=== PATIENT | female | born 1960 | race African-American/Black ===

== ENCOUNTER 2017-07-13 13:32 | Inpatient (IN) | payer MEDICAID ==
[~2017-07-13] VITALS: Ht 170.2 cm; Wt 71.0 kg
[~2017-07-13 13:32] MED LIST: ALBU1.25 NEB; ALBU6.7H INH; AMOX1TAB61 PO; AMOX1TAB64 PO; AZIT500T5 PO; CLIN300C8 PO; ERTA1VIA IV; FLUT1DIS5 IH; GABA300C10 PO; GUAI600T31 PO; HYDR-3237 PO; METF850T2 PO; METH500T7 PO; PRED20TA PO; PRED5TAB PO; PRED5TAB19 PO; SULF1TAB24 PO; TIOT18CA INH; ZOLP-413 PO
[2017-07-13] MEDS ORDERED: KETOROLAC 30 MG/1 ML IVPush ONE (14:00)
[2017-07-13] MEDS ORDERED: ALBUTEROL/IPRATROPIUM 2.5MG/0.5MG, 3 ML NPPB ONE (14:00)
[2017-07-13] MEDS ORDERED: methylPREDNISolone SOD SUCC 125 MG/2 ML IVP ONE ×2 (14:00→16:30)
[2017-07-13] MEDS ORDERED: CEFTRIAXONE PMX 1GM/50ML 50 ML IVPB ONE ×2 (14:00→16:00)
[2017-07-13] MEDS ORDERED: SODIUM CHLORIDE 0.9% 1,000ML IVBOLUS ONE (14:00)
[2017-07-13] MEDS ORDERED: SODIUM CHLORIDE FLUSH 10ML SYR IVF ONE (14:00)
[2017-07-13] MEDS ORDERED: KETOROLAC 30 MG/1 ML ONE (14:06)
[2017-07-13] MEDS ORDERED: CEFTRIAXONE PMX 1GM/50ML 50 ML ONE (14:06)
[2017-07-13] MEDS ORDERED: methylPREDNISolone SOD SUCC 125 MG/2 ML ONE (14:06)
[2017-07-13] MEDS ORDERED: ALBUTEROL/IPRATROPIUM 2.5MG/0.5MG, 3 ML ONE (14:09)
[2017-07-13 14:24] LABS: BASOPHILS % (AUTO) 0 % (0-1); EOSINOPHILS % (AUTO) 0 % (1-7); LYMPHOCYTES # (AUTO) 1.08 x10^3/uL (1-3.4); LYMPHOCYTES % (AUTO) 7 % (22-44); MD NO; MEAN CORPUSCULAR HEMOGLOBIN 31.1 pg (27.0-34.8); MEAN CORPUSCULAR HGB CONC 33.6 g/dL (32.4-35.8); MEAN CORPUSCULAR VOLUME 92.6 fL (80-100); MEAN PLATELET VOLUME 7.7 fL (7.4-10.4); MONOCYTES # (AUTO) 0.16 x10^3/uL (0.2-0.8); MONOCYTES % (AUTO) 1 % (2-9); NEUTROPHILS # (AUTO) 13.99 x10^3/uL (1.8-6.8); NEUTROPHILS % (AUTO) 92 % (42-75); PLATELET COUNT 413 x10^3/uL (130-400); RED BLOOD COUNT 4.62 x10^6/uL (3.82-5.3); RED CELL DISTRIBUTION WIDTH 13.1 % (9.6-15.2)
[2017-07-13 14:37] LABS: ALBUMIN 3.1 g/dL (3.4-5.0); ANION GAP 8 mmol/L (5-15); CALCIUM 8.6 mg/dL (8.5-10.1); CHLORIDE 104 mmol/L (98-107); CREATININE 0.75 mg/dL (0.55-1.02)
[2017-07-13 14:41] LABS: TROPONIN I < 0.015 ng/mL (0.000-0.045)
[2017-07-13] MEDS ORDERED: ONDANSETRON 2MG/ML, 2ML ONE (14:58)
[2017-07-13] MEDS ORDERED: PRED10TA14 PO (15:17)
[2017-07-13] MEDS ORDERED: SODIUM CHLORIDE 0.9% 1,000 ML IV ONE ×2 (15:49→16:30)
[2017-07-13] MEDS ORDERED: SODIUM CHLORIDE FLUSH 10ML SYR IVF PRN (16:00)
[2017-07-13] MEDS ORDERED: ONDANSETRON 2MG/ML, 2ML IVPush PRN (16:30)
[2017-07-13] MEDS ORDERED: ACETAMINOPHEN 325 MG TABLET PO PRN (16:30)
[2017-07-13] MEDS ORDERED: LABETALOL 5MG/ML, 20ML IVPush PRN (16:30)
[2017-07-13] MEDS ORDERED: ENALAPRILAT 1.25 MG/ML, 2ML IVPush PRN (16:30)
[2017-07-13] MEDS ORDERED: ONDANSETRON ODT 4 MG PO PRN (16:30)
[2017-07-13] MEDS ORDERED: DOCUSATE 100 MG CAPSULE PO PRN (16:30)
[2017-07-13 17:30] VITALS: BP 142/91
[2017-07-13] MEDS ORDERED: methylPREDNISolone SOD SUCC 40 MG/ML ONE (18:18)
[2017-07-13] MEDS: methylPREDNISolone SOD SUCC 40 MG/ML IVPush SCH ×2 (18:23→22:19)
[2017-07-13] MEDS: AZITHROMYCIN 500 MG in SODIUM CHLORIDE 0.9% 250 ML IV SCH (18:34)
[2017-07-13] MEDS ORDERED: ACETAMINOPHEN 325 MG TABLET ONE (18:40)
[2017-07-13] MEDS: ALBUTEROL/IPRATROPIUM 2.5MG/0.5MG, 3 ML NPPB SCH (20:00)
[2017-07-13] MEDS: FLUTICASONE/VILANTEROL 200-25MCG/INH INH SCH (21:00)
[2017-07-13] MEDS: OSELTAMIVIR 75 MG CAPSULE PO SCH (22:00)
[2017-07-13] MEDS: GUAIFENESIN/DM 200-20MG, 10ML UDC PO PRN (22:00)
[2017-07-13] MEDS: GABAPENTIN 300 MG CAPSULE PO SCH (22:00)
[2017-07-13] MEDS: ENOXAPARIN 40 MG/0.4 ML SQ SCH (22:00)
[2017-07-13] MEDS: INSULIN ASPART 100 UNITS/ML, PEN SQ-INSULIN SCH (22:01)
[2017-07-14 01:08] VITALS: BP 141/82
[2017-07-14] MEDS: ALBUTEROL/IPRATROPIUM 2.5MG/0.5MG, 3 ML NPPB SCH ×5 (03:35→19:01)
[2017-07-14] MEDS: methylPREDNISolone SOD SUCC 40 MG/ML IVPush SCH ×4 (04:30→22:49)
[2017-07-14 05:11] LABS: BASOPHILS # (AUTO) 0.03 x10^3/uL (0-0.1); BASOPHILS % (AUTO) 0 % (0-1); EOSINOPHILS % (AUTO) 0 % (1-7); LYMPHOCYTES # (AUTO) 1.29 x10^3/uL (1-3.4); LYMPHOCYTES % (AUTO) 8 % (22-44); MD NO; MEAN CORPUSCULAR HEMOGLOBIN 30.9 pg (27.0-34.8); MEAN CORPUSCULAR HGB CONC 32.9 g/dL (32.4-35.8); MEAN CORPUSCULAR VOLUME 93.8 fL (80-100); MEAN PLATELET VOLUME 7.5 fL (7.4-10.4); MONOCYTES # (AUTO) 0.23 x10^3/uL (0.2-0.8); MONOCYTES % (AUTO) 1 % (2-9); NEUTROPHILS # (AUTO) 14.56 x10^3/uL (1.8-6.8); NEUTROPHILS % (AUTO) 90 % (42-75); PLATELET COUNT 413 x10^3/uL (130-400); RED BLOOD COUNT 4.43 x10^6/uL (3.82-5.3); RED CELL DISTRIBUTION WIDTH 13.2 % (9.6-15.2)
[2017-07-14 05:17] LABS: ANION GAP 9 mmol/L (5-15); CALCIUM 8.4 mg/dL (8.5-10.1); CHLORIDE 101 mmol/L (98-107)
[2017-07-14 05:18] LABS: CREATININE 0.53 mg/dL (0.55-1.02)
[2017-07-14] MEDS: GUAIFENESIN/DM 200-20MG, 10ML UDC PO PRN ×2 (05:37→11:45)
[2017-07-14 06:55] VITALS: BP 138/89
[2017-07-14] MEDS: GABAPENTIN 300 MG CAPSULE PO SCH ×2 (08:55→20:20)
[2017-07-14] MEDS: SENNA/DOCUSATE TABLET PO SCH (08:55)
[2017-07-14] MEDS: OSELTAMIVIR 75 MG CAPSULE PO SCH ×2 (08:55→20:20)
[2017-07-14] MEDS: FLUTICASONE/VILANTEROL 200-25MCG/INH INH SCH (08:55)
[2017-07-14] MEDS: DIPHENHYDRAMINE 25 MG CAPSULE PO PRN (08:55)
[2017-07-14] MEDS: INSULIN ASPART 100 UNITS/ML, PEN SQ-INSULIN SCH ×4 (08:56→20:21)
[2017-07-14] MEDS ORDERED: CEFTRIAXONE PMX 1GM/50ML 50 ML IV SCH (09:00)
[2017-07-14] MEDS ORDERED: IPRATROPIUM 0.5 MG/2.5 ML INHA NPPB SCH (09:00)
[2017-07-14] MEDS ORDERED: CEFTRIAXONE 1,000 MG in DEXTROSE 5% 50 ML IV SCH (09:00)
[2017-07-14] MEDS: ACETAMINOPHEN 325 MG TABLET PO SCH ×2 (11:45→18:01)
[2017-07-14 13:59] VITALS: BP 137/82
[2017-07-14] MEDS: AZITHROMYCIN 500 MG in SODIUM CHLORIDE 0.9% 250 ML IV SCH (16:29)
[2017-07-14] MEDS: ENOXAPARIN 40 MG/0.4 ML SQ SCH (16:29)
[2017-07-14 18:45] VITALS: BP 142/84
[2017-07-14] MEDS: ZOLPIDEM 5MG TABLET PO SCH (20:20)
[2017-07-15] MEDS: GUAIFENESIN/DM 200-20MG, 10ML UDC PO PRN ×3 (00:12→20:33)
[2017-07-15] MEDS: ACETAMINOPHEN 325 MG TABLET PO SCH ×4 (00:13→17:17)
[2017-07-15 02:01] VITALS: BP 137/87
[2017-07-15] MEDS: methylPREDNISolone SOD SUCC 40 MG/ML IVPush SCH (04:43)
[2017-07-15 05:30] LABS: MEAN CORPUSCULAR HEMOGLOBIN 30.9 pg (27.0-34.8); MEAN CORPUSCULAR HGB CONC 33.3 g/dL (32.4-35.8); MEAN CORPUSCULAR VOLUME 92.9 fL (80-100); MEAN PLATELET VOLUME 7.4 fL (7.4-10.4); PLATELET COUNT 404 x10^3/uL (130-400); RED BLOOD COUNT 4.26 x10^6/uL (3.82-5.3)
[2017-07-15 05:31] LABS: ANION GAP 7 mmol/L (5-15); CALCIUM 8.9 mg/dL (8.5-10.1); CHLORIDE 102 mmol/L (98-107); CREATININE 0.64 mg/dL (0.55-1.02)
[2017-07-15 06:06] LABS: BASOPHILS % (AUTO) 0 % (0-1); EOSINOPHILS % (AUTO) 0 % (1-7); LYMPHOCYTES # (AUTO) 1.43 x10^3/uL (1-3.4); LYMPHOCYTES % (AUTO) 6 % (22-44); MD SCAN; MONOCYTES # (AUTO) 0.72 x10^3/uL (0.2-0.8); MONOCYTES % (AUTO) 3 % (2-9); NEUTROPHILS # (AUTO) 21.76 x10^3/uL (1.8-6.8); NEUTROPHILS % (AUTO) 91 % (42-75)
[2017-07-15 06:40] VITALS: BP 133/90
[2017-07-15] MEDS: ALBUTEROL/IPRATROPIUM 2.5MG/0.5MG, 3 ML NPPB SCH ×4 (07:00→18:46)
[2017-07-15] MEDS: SENNA/DOCUSATE TABLET PO SCH (08:31)
[2017-07-15] MEDS: DIPHENHYDRAMINE 25 MG CAPSULE PO PRN (08:31)
[2017-07-15] MEDS: GABAPENTIN 300 MG CAPSULE PO SCH ×2 (08:31→20:27)
[2017-07-15] MEDS: methylPREDNISolone SOD SUCC 40 MG/ML IV SCH ×2 (08:32→20:27)
[2017-07-15] MEDS: OSELTAMIVIR 75 MG CAPSULE PO SCH ×2 (08:32→20:27)
[2017-07-15] MEDS: FLUTICASONE/VILANTEROL 200-25MCG/INH INH SCH (08:32)
[2017-07-15] MEDS: INSULIN ASPART 100 UNITS/ML, PEN SQ-INSULIN SCH ×4 (08:32→22:01)
[2017-07-15] MEDS ORDERED: PHARMACOKINETIC MONITORING MC PRN (09:00)
[2017-07-15] MEDS ORDERED: VANCOMYCIN PER PHARMACY MC PRN (09:00)
[2017-07-15] MEDS ORDERED: PHARMACOKINETIC CONSULTATION MC ONE (09:00)
[2017-07-15 09:15] LABS: ALANINE AMINOTRANSFERASE 25 U/L (12-78); ALBUMIN 2.8 g/dL (3.4-5.0)
[2017-07-15 09:17] LABS: ALKALINE PHOSPHATASE 93 U/L (45-117); TOTAL PROTEIN 6.6 g/dL (6.4-8.2)
[2017-07-15 09:18] LABS: BILIRUBIN,TOTAL < 0.1 mg/dL (0.2-1.0)
[2017-07-15] MEDS: VANCOMYCIN 1,400 MG in SODIUM CHLORIDE 0.9% 250 ML IV SCH ×2 (11:38→22:01)
[2017-07-15] MEDS: LACTOBACILLUS CHEW TABLET PO SCH ×3 (12:01→20:27)
[2017-07-15 13:33] VITALS: BP 142/88
[2017-07-15] MEDS: AZITHROMYCIN 500 MG in SODIUM CHLORIDE 0.9% 250 ML IV SCH (17:17)
[2017-07-15] MEDS: ENOXAPARIN 40 MG/0.4 ML SQ SCH (17:17)
[2017-07-15 19:44] VITALS: BP 126/78
[2017-07-15] MEDS: ZOLPIDEM 5MG TABLET PO SCH (20:27)
[2017-07-16] MEDS: ALBUTEROL SULFATE 2.5 MG/3 ML NPPB PRN ×2 (00:19→12:30)
[2017-07-16] MEDS: DIPHENHYDRAMINE 25 MG CAPSULE PO PRN ×2 (00:42→20:32)
[2017-07-16] MEDS: ACETAMINOPHEN 325 MG TABLET PO SCH ×4 (00:42→18:13)
[2017-07-16 02:30] VITALS: BP 148/87
[2017-07-16] MEDS: GUAIFENESIN/DM 200-20MG, 10ML UDC PO PRN ×3 (03:05→18:16)
[2017-07-16 07:01] VITALS: BP 137/88
[2017-07-16 07:50] LABS: MEAN CORPUSCULAR HEMOGLOBIN 31.3 pg (27.0-34.8); MEAN CORPUSCULAR HGB CONC 33.8 g/dL (32.4-35.8); MEAN CORPUSCULAR VOLUME 92.8 fL (80-100); MEAN PLATELET VOLUME 7.3 fL (7.4-10.4); PLATELET COUNT 436 x10^3/uL (130-400); RED BLOOD COUNT 4.51 x10^6/uL (3.82-5.3); RED CELL DISTRIBUTION WIDTH 13.2 % (9.6-15.2)
[2017-07-16] MEDS: ALBUTEROL/IPRATROPIUM 2.5MG/0.5MG, 3 ML NPPB SCH ×4 (07:50→18:49)
[2017-07-16 08:01] LABS: ALBUMIN 3.1 g/dL (3.4-5.0); ANION GAP 9 mmol/L (5-15); CALCIUM 8.7 mg/dL (8.5-10.1); CHLORIDE 100 mmol/L (98-107); CREATININE 0.72 mg/dL (0.55-1.02)
[2017-07-16 08:17] LABS: BASOPHILS # (AUTO) 0.01 x10^3/uL (0-0.1); BASOPHILS % (AUTO) 0 % (0-1); EOSINOPHILS % (AUTO) 0 % (1-7); LYMPHOCYTES # (AUTO) 1.61 x10^3/uL (1-3.4); LYMPHOCYTES % (AUTO) 7 % (22-44); MD SCAN; MONOCYTES # (AUTO) 0.83 x10^3/uL (0.2-0.8); MONOCYTES % (AUTO) 4 % (2-9); NEUTROPHILS % (AUTO) 90 % (42-75)
[2017-07-16] MEDS ORDERED: LACTULOSE 20 GM/30 ML UDC PO ONE (08:30)
[2017-07-16] MEDS: FLUTICASONE/VILANTEROL 200-25MCG/INH INH SCH (08:57)
[2017-07-16] MEDS: methylPREDNISolone SOD SUCC 40 MG/ML IV SCH ×2 (08:58→20:32)
[2017-07-16] MEDS: OSELTAMIVIR 75 MG CAPSULE PO SCH ×2 (08:58→20:32)
[2017-07-16] MEDS: VANCOMYCIN 1,400 MG in SODIUM CHLORIDE 0.9% 250 ML IV SCH (08:58)
[2017-07-16] MEDS: GABAPENTIN 300 MG CAPSULE PO SCH ×2 (08:58→20:32)
[2017-07-16] MEDS: SENNA/DOCUSATE TABLET PO SCH (08:58)
[2017-07-16] MEDS: INSULIN ASPART 100 UNITS/ML, PEN SQ-INSULIN SCH ×4 (08:59→20:33)
[2017-07-16] MEDS: LACTOBACILLUS CHEW TABLET PO SCH ×3 (08:59→20:32)
[2017-07-16] MEDS: GUAIFENESIN ER 600 MG TABLET PO SCH ×2 (11:12→20:32)
[2017-07-16] MEDS: OXYcodone/APAP 5/325MG TABLET PO PRN ×2 (11:13→18:13)
[2017-07-16 15:07] VITALS: BP 154/93
[2017-07-16] MEDS: ENOXAPARIN 40 MG/0.4 ML SQ SCH (18:15)
[2017-07-16] MEDS: AZITHROMYCIN 500 MG in SODIUM CHLORIDE 0.9% 250 ML IV SCH (18:16)
[2017-07-16 19:04] VITALS: BP 144/84
[2017-07-16] MEDS: ZOLPIDEM 5MG TABLET PO SCH (20:32)
[2017-07-16 23:54] VITALS: BP 132/83
[2017-07-17] MEDS: OXYcodone/APAP 5/325MG TABLET PO PRN ×3 (00:28→12:25)
[2017-07-17] MEDS: GUAIFENESIN/DM 200-20MG, 10ML UDC PO PRN ×2 (00:28→10:04)
[2017-07-17] MEDS: ACETAMINOPHEN 325 MG TABLET PO SCH ×3 (00:30→12:25)
[2017-07-17] MEDS: ALBUTEROL/IPRATROPIUM 2.5MG/0.5MG, 3 ML NPPB SCH ×3 (01:36→10:13)
[2017-07-17 05:05] LABS: BASOPHILS # (AUTO) 0.04 x10^3/uL (0-0.1); BASOPHILS % (AUTO) 0 % (0-1); EOSINOPHILS # (AUTO) 0.01 x10^3/uL (0-0.4); EOSINOPHILS % (AUTO) 0 % (1-7); LYMPHOCYTES # (AUTO) 2.35 x10^3/uL (1-3.4); LYMPHOCYTES % (AUTO) 15 % (22-44); MD NO; MEAN CORPUSCULAR HEMOGLOBIN 30.9 pg (27.0-34.8); MEAN CORPUSCULAR HGB CONC 33.1 g/dL (32.4-35.8); MEAN CORPUSCULAR VOLUME 93.3 fL (80-100); MEAN PLATELET VOLUME 7.3 fL (7.4-10.4); MONOCYTES % (AUTO) 7 % (2-9); NEUTROPHILS # (AUTO) 11.77 x10^3/uL (1.8-6.8); NEUTROPHILS % (AUTO) 77 % (42-75); PLATELET COUNT 375 x10^3/uL (130-400); RED BLOOD COUNT 4.18 x10^6/uL (3.82-5.3); RED CELL DISTRIBUTION WIDTH 13.1 % (9.6-15.2)
[2017-07-17] MEDS: INSULIN ASPART 100 UNITS/ML, PEN SQ-INSULIN SCH ×2 (07:00→12:26)
[2017-07-17 07:13] VITALS: BP 142/86
[2017-07-17] MEDS: FLUTICASONE/VILANTEROL 200-25MCG/INH INH SCH (10:03)
[2017-07-17] MEDS: methylPREDNISolone SOD SUCC 40 MG/ML IV SCH (10:04)
[2017-07-17] MEDS: GUAIFENESIN ER 600 MG TABLET PO SCH (10:07)
[2017-07-17] MEDS: OSELTAMIVIR 75 MG CAPSULE PO SCH (10:08)
[2017-07-17] MEDS: LACTOBACILLUS CHEW TABLET PO SCH (10:08)
[2017-07-17] MEDS: SENNA/DOCUSATE TABLET PO SCH (10:08)
[2017-07-17] MEDS: GABAPENTIN 300 MG CAPSULE PO SCH (10:09)
[2017-07-17] MEDS ORDERED: GUAI600T31 PO (10:59)
[2017-07-17] MEDS ORDERED: OSEL75CA PO (11:02)
== END 2017-07-17 12:38 | disposition home or self-care (01) | DRG 871 ==
LOC: ED 14:24 → EDIP 15:49 → UNDOADMIN 15:57 → EDIP 15:57 → 3NE 20:15
PROVIDERS: ADMIT Internal Medicine; ATTEND Internal Medicine
DX: A41.9 Sepsis, unspecified organism (principal); J10.08 Influenza due to other identified influenza virus with other specified pneumonia; E11.40 Type 2 diabetes mellitus with diabetic neuropathy, unspecified; J44.0 Chronic obstructive pulmonary disease with (acute) lower respiratory infection; J98.11 Atelectasis; Z99.81 Dependence on supplemental oxygen; R09.02 Hypoxemia; Z80.8 Family history of malignant neoplasm of other organs or systems; Z87.891 Personal history of nicotine dependence
CPT/HCPCS: 36415; 71250; 80048; 80053; 82040; 82962; 83605; 83735; 84100; 84145; 84484; 85025; 86703; 86704; 86706; 86708; 86803; 87040; 87070; 87205; 87340; 87899; 93005; 93306; 94640; 96365; 96375; J0456; J0696; J1650; J1815; J1885; J3370; J7613; J7620; G0435; J2920; J2930; J7030; J7050; Q0163